=== PATIENT | female | born 1945 | race Caucasian/White ===

== ENCOUNTER 2016-07-30 21:31 | Inpatient (IN) | payer MEDICARE, OTHER ==
[~2016-07-30 21:31] MED LIST: ASPIRIN81 MG PO; CALCIUM 600+D1 EAC1 PO; CORTISONE ACETA25 MG PO; FLORINEF ACETA0.1 MG PO; GLUCOSAMINE S1000 MG PO; NORCO 5/325 TAB1 TAB PO; SYNTHROID100 MCG PO
[2016-07-30 22:43] LABS: BASO % 0.2 % (0-2); EOS % 1.6 % (0-7); EOSINOPHIL ABSOLUTE COUNT 0.2 tho/cmm (0.0-0.7); HCT-HEMATOCRIT 40.6 % (34.0-49.0); HGB-HEMOGLOBIN 13.5 gm/dl (12.0-15.5); IMMATURE GRANULOCYTES ABSOLUTE 0.01 tho/cmm (0-0.03); IMMATURE GRANULOCYTES PERCENT 0.1 % (0-0.3); LYMPH % 21.2 % (20-45); LYMPH ABSOLUTE COUNT 2.1 tho/cmm (0.8-4.5); MCH (MEAN CORPUSCULAR HGB) 30.2 pg (28.0-32.0); MCHC MEAN CORPUSCULAR HGB CONC 33.3 % (32.0-36.0); MCV (MEAN CELL VOLUME) 90.8 fl (82.0-96.0); MONOCYTE ABSOLUTE COUNT 0.7 tho/cmm (0.0-1.2); NEUTROPHIL ABSOLUTE COUNT 6.9 tho/cmm (1.6-8.0); NEUTROPHIL-AUTOMATED 6.9 tho/cmm (1.6-8.0); NEUTROPHILS % 69.9 % (40-80); PLATELET COUNT 176 tho/cmm (150-450); RED BLOOD COUNT 4.47 mil/cmm (4.00-5.20); RED CELL DISTRIBUTION WIDTH 13.2 % (12.4-16.4); WHITE BLOOD COUNT 9.8 tho/cmm (4.0-10.0)
[2016-07-30] MEDS ORDERED: HYDROCORTISONE20 M1 PO (22:45)
[2016-07-30] MEDS ORDERED: FLUDROCORTISON0.1 M1 PO (22:46)
[2016-07-30] MEDS ORDERED: OSTEO BI-FLEX1 EAC5 PO (22:48)
[2016-07-30 22:52] LABS: ALB/GLOB RATIO 1.1 (0.8-2.0); ALBUMIN 3.6 g/dl (3.5-5.0); ALKALINE PHOSPHATASE 93 U/L (33-138); ALT/SGPT 24 U/L (12-78); ANION GAP 14 mmol/L (0-20); AST/SGOT 17 U/L (10-40); BILIRUBIN,TOTAL 0.5 mg/dl (0-1.5); BLOOD UREA NITROGEN 8 mg/dl (6-24); CALCIUM 8.4 mg/dl (8.5-10.5); CARBON DIOXIDE-VENOUS 22 mmol/L (22-32); CHLORIDE 110 mmol/l (96-110); CREATININE 0.76 mg/dl (0.50-1.10); GLUCOSE 111 mg/dL (70-110); POTASSIUM 3.4 mmol/L (3.7-5.1); SODIUM 143 mmol/L (135-145); eGFR VALUE FOR BLACK >90 mL/Min
[2016-07-30 23:07] LABS: PROCALCITONIN <0.05 ng/ml (0.05-0.09)
[2016-07-31 00:12] LABS: URINE BILIRUBIN NEGATIVE (NEG); URINE BLOOD NEGATIVE (NEG); URINE GLUCOSE (UA) NEGATIVE (NEG); URINE KETONE NEGATIVE (NEG); URINE LEUKOCYTE ESTERASE POSITIVE (NEG); URINE NITRITE NEGATIVE (NEG); URINE PROTEIN NEGATIVE (NEG)
[2016-07-31 00:13] LABS: URINE APPEARANCE SLIGHTLY HAZY; URINE COLOR YELLOW
[2016-07-31 00:22] LABS: URINE BACTERIA 1+; URINE EPITHELIAL CELLS 0-1 /[HPF] (0-10); URINE RBC 0-1 /[HPF] (0-5)
[2016-07-31 02:54] LABS: BASO % 0.1 % (0-2); EOS % 0.2 % (0-7); HGB-HEMOGLOBIN 11.9 gm/dl (12.0-15.5); IMMATURE GRANULOCYTES ABSOLUTE 0.01 tho/cmm (0-0.03); IMMATURE GRANULOCYTES PERCENT 0.1 % (0-0.3); LYMPH % 5.8 % (20-45); LYMPH ABSOLUTE COUNT 0.6 tho/cmm (0.8-4.5); MCH (MEAN CORPUSCULAR HGB) 29.9 pg (28.0-32.0); MCHC MEAN CORPUSCULAR HGB CONC 33.1 % (32.0-36.0); MCV (MEAN CELL VOLUME) 90.5 fl (82.0-96.0); MONO % 4.1 % (0-12); MONOCYTE ABSOLUTE COUNT 0.4 tho/cmm (0.0-1.2); NEUTROPHIL ABSOLUTE COUNT 8.5 tho/cmm (1.6-8.0); NEUTROPHIL-AUTOMATED 8.5 tho/cmm (1.6-8.0); NEUTROPHILS % 89.7 % (40-80); PLATELET COUNT 146 tho/cmm (150-450); RED BLOOD COUNT 3.98 mil/cmm (4.00-5.20); RED CELL DISTRIBUTION WIDTH 13.1 % (12.4-16.4); WHITE BLOOD COUNT 9.5 tho/cmm (4.0-10.0)
[2016-07-31 03:10] LABS: INR 1.1 INR (0.9-1.1); PROTHROMBIN TIME 12.9 SECONDS (9.0-13.6)
[2016-07-31 03:22] LABS: ALKALINE PHOSPHATASE 75 U/L (33-138); ALT/SGPT 19 U/L (12-78); ANION GAP 13 mmol/L (0-20); AST/SGOT 17 U/L (10-40); BILIRUBIN,TOTAL 0.6 mg/dl (0-1.5); BLOOD UREA NITROGEN 6 mg/dl (6-24); CALCIUM 7.7 mg/dl (8.5-10.5); CARBON DIOXIDE-VENOUS 21 mmol/L (22-32); CHLORIDE 112 mmol/l (96-110); CREATININE 0.56 mg/dl (0.50-1.10); GLUCOSE 140 mg/dL (70-110); POTASSIUM 3.1 mmol/L (3.7-5.1); SODIUM 143 mmol/L (135-145); eGFR VALUE FOR BLACK >90 mL/Min
[2016-07-31 03:47] LABS: PROCALCITONIN <0.05 ng/ml (0.05-0.09)
--- NOTE | 2016-07-31 14:51 | NUR ---
VIRTUAL CARE NOTE: ROUND ON PT, STATES DOING GOOD EXCEPT FOR COUGHING STILL YET. PT NEEDS TO GO TO BR AT THIS TIME. DENIES ANY CONCERNS OR QUESTONS.
[2016-08-01 05:57] LABS: HGB-HEMOGLOBIN 11.9 gm/dl (12.0-15.5); PLATELET COUNT 148 tho/cmm (150-450)
[2016-08-01 06:10] LABS: ANION GAP 11 mmol/L (0-20); BLOOD UREA NITROGEN 3 mg/dl (6-24); CARBON DIOXIDE-VENOUS 26 mmol/L (22-32); CHLORIDE 105 mmol/l (96-110); CREATININE 0.56 mg/dl (0.50-1.10); GLUCOSE 97 mg/dL (70-110); SODIUM 139 mmol/L (135-145); eGFR VALUE FOR BLACK >90 mL/Min
[2016-08-01 06:15] LABS: POTASSIUM 2.9 mmol/L (3.7-5.1)
[2016-08-02 05:08] LABS: BLOOD UREA NITROGEN 4 mg/dl (6-24); CALCIUM 8.8 mg/dl (8.5-10.5); CARBON DIOXIDE-VENOUS 27 mmol/L (22-32); CHLORIDE 111 mmol/l (96-110); CREATININE 0.47 mg/dl (0.50-1.10); GLUCOSE 90 mg/dL (70-110); MAGNESIUM 2.2 mg/dl (1.8-2.6); SODIUM 146 mmol/L (135-145); eGFR VALUE FOR BLACK >90 mL/Min
[2016-08-02 05:11] LABS: ANION GAP 12 mmol/L (0-20); POTASSIUM 3.9 mmol/L (3.7-5.1)
[2016-08-02] MEDS ORDERED: ZITHROMAX250 M1 PO (11:03)
[2016-08-02] MEDS ORDERED: MUCINEX600 M1 PO (11:04)
== END 2016-08-02 11:55 | DRG 871 ==
LOC: EDMED 21:31 → EMR2 07-31 00:41 → 5WD 07-31 01:41
PROVIDERS: Emergency Medicine; Family Medicine; Internal Medicine; ADMIT Hospitalist
DX: A41.9 Sepsis, unspecified organism (principal); J18.9 Pneumonia, unspecified organism; E27.1 Primary adrenocortical insufficiency; E03.9 Hypothyroidism, unspecified; E87.6 Hypokalemia; Z79.82 Long term (current) use of aspirin; J40 Bronchitis, not specified as acute or chronic
CPT/HCPCS: J0456; J0696; J1650; J1720; J3370; J7030; J7050